=== PATIENT | female | born 1990 | race Caucasian/White ===

== ENCOUNTER 2016-04-11 13:38 | Emergency (ER) | payer OTHER ==
[~2016-04-11] VITALS: Ht 172.7 cm; Wt 82.0 kg
[2016-04-11 13:40] VITALS: Ht 172.7 cm; Wt 82.0 kg
--- NOTE | 2016-04-11 14:31 | DIAGNOSTIC IMAGING REPORT ---
RIGHT KNEE 3 VIEWS CLINICAL HISTORY: Right knee pain following fall. COMPARISON: None FINDINGS: Alignment of the right knee is anatomic. No acute fractures identified. There is a possible small right knee joint effusion. IMPRESSION: 1. No acute fracture. 2. Possible small right knee joint effusion. Electronically signed by: Bhanu Vicente M.D. 04/11/2016 2:29 PM Dictated Date/Time: 04/11/2016 2:28 PM
[2016-04-11 15:14] VITALS: BP 132/88; PULSE 99; TEMP 36.9; O2SAT 98
--- NOTE | 2016-04-11 18:03 | EMERGENCY ROOM VISIT NOTE ---
ED Visit Note First contact with patient: 13:46 CHIEF COMPLAINT: Right Knee injury HISTORY OF PRESENT ILLNESS: This 25-year-old white female patient injured the right knee within the last hour when she fell onto her right knee while ice skating. She is unsure if there was a snap or pop. She has had difficulty bearing weight. Treatment has consisted of ice. A female friend accompanies her today. No prior history of significant knee injury. Her knee pain is primarily anterior. No numbness or tingling. REVIEW OF SYSTEM: HEENT: No dizziness, visual problems, hearing loss, or tinnitus. There is no difficulty swallowing and no oral lesions are present. PULMONARY: No cough, shortness of breath, sputum production or hemoptysis. CARDIOVASCULAR: No chest pain, palpitations, shortness of breath or peripheral edema. GASTROINTESTINAL: No diarrhea, constipation, nausea, vomiting, or abdominal pain. GENITOURINARY: No dysuria, frequency, urgency or nocturia. NEUROLOGIC: No weakness, muscle tenderness, epilepsy or history of neurological problems. MUSCULOSKELETAL: No history of joint tenderness/swelling. No history of arthritis or arthralgias. SKIN: No rashes or lesions. PSYCHIATRIC: No history of depression or mental illness. ENDOCRINE: No history of diabetes, thyroid disorders, or abnormal hair growth. PMH: The patient is healthy; there is no significant medical or surgical history. 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 No tobacco use. PHYSICAL EXAM: Vital Signs: Reviewed Nurse's notes. Afebrile. MENTAL STATUS: Alert, oriented, and cooperative. General: Well-developed, well-nourished, young white female, in obvious discomfort. No acute distress. Laying on a bed. Skin:Warm and dry with good turgor. No rashes or lesions. No ecchymosis or erythema. Mild intra-articular effusion in the right knee. The patient is not diaphoretic. Small present over the right patella. Musculoskeletal: The right knee is tender to palpation around the patella. The range of motion is limited secondary to pain. She has full terminal extension. Flexion to around 60 area There is no ligamentous instability. No pain with palpation over the medial or lateral joint lines. No pain in the posterior aspect. No defect in the patellar tendon or quadriceps tendon. She does have discomfort with palpation over the patellar tendon and quadriceps tendon. She is able to set her quad and do a straight leg raise. There is discomfort with palpation over the medial and lateral retinaculum. Neurologic: Gross sensation is intact across the right leg by soft touch. Peripheral pulses are 2+. EMERGENCY DEPARTMENT COURSE: X-ray does not show any fractures or loose bodies. Films were read by radiology. DIAGNOSIS: Right Knee contusion DISCHARGE INSTRUCTIONS: Patient was educated regarding today's findings. Conservative care measures were discussed. She was placed in an Miki wrap for compression and support. Crutches were given and crutch instruction was reviewed. Weight-bear as tolerated. Gentle motion daily. Start ibuprofen, 600 mg every 6 hours if needed for pain. Supplement with Tylenol every 6 hours as needed. Ice and elevation to the knee for the next 72 hours. Follow-up with her orthopedist if symptoms are not improving over the next 4-[address] she is able to walk without a limp. Current/Historical Medications No Active Prescriptions or Reported Meds Allergies Coded Allergies: No Known Allergies (Unverified , 04/11/16) Vital Signs Date Time Temp Pulse Resp B/P Pulse Ox O2 Delivery O2 Flow Rate FiO2 04/11/16 15:14 36.9 99 18 132/88 98 04/11/16 15:13 99 18 132/88 98 Room Air 04/11/16 13:40 36.9 104 18 147/90 97 Room Air Departure Information Impression Primary Impression: Contusion of right knee Dispostion Home / Self-Care Condition GOOD Prescriptions No Active Prescriptions or Reported Meds Referrals Saji Augustin MD Forms HOME CARE DOCUMENTATION FORM, MOTRIN USE, TYLENOL USE, IMPORTANT VISIT INFORMATION Patient Instructions My [facility] [employer] Additional Instructions Ice and elevate frequently to reduce pain and swelling Use the Miki wrap to control swelling Use crutches until you can walk without a [id number] as tolerated Tylenol and Motrin every 6 hours as needed for discomfort Follow-up with [facility] or your orthopedist if symptoms are not improving by Wednesday
== END 2016-04-11 15:16 | disposition home or self-care (01) ==
LOC: C.EDB 13:40 → C.EDD 15:16
DX: S80.01XA Contusion of right knee, initial encounter (principal); W19.XXXA Unspecified fall, initial encounter; Y93.21 Activity, ice skating

== ENCOUNTER 2023-12-28 15:42 | Inpatient (IN) ==
[2023-12-28] MEDS ORDERED: CALCIUM CARBONATE 500 MG CHEWABLE TAB PO PRN (16:52)
[2023-12-28] MEDS ORDERED: LIDOCAINE 1% LOCAL 20 ML VIAL INFIL PRN (16:52)
[2023-12-28] MEDS ORDERED: OXYTOCIN 30 UNITS/NSS 30 UNITS/500 ML BAG IV PRN (16:52)
[2023-12-28] MEDS ORDERED: ACETAMINOPHEN 325 MG TAB PO PRN (16:52)
[2023-12-28 17:21] LABS: Hematocrit (blood only) 40.9 % (37.0-47.0); Hemoglobin 14.5 g/dl (12.0-16.0); Mean Corpuscular Hemoglobin 33.8 pg (25.0-34.0); Mean Corpuscular Hgb Conc 35.5 g/dL (32.0-36.0); Mean Corpuscular Volume 95.3 fL (80.0-100.0); Mean Platelet Volume 10.5 fL (9.4-12.4); Platelet Count 262 K/uL (130-400); RDW Coefficient of Variation 13.7 % (11.5-14.5); RDW Standard Deviation 47.8 fL (36.4-46.3); Red Blood Count 4.29 M/uL (4.20-5.40)
--- NOTE | 2023-12-28 17:33 | History & Physical Report ---
Date of Service December 28, 2023 Assessment & Plan (1) Gestational diabetes mellitus (GDM) affecting , antepartum: Plan: IUP at 40 6/7 weeks for IOL because of post term . cervical balloon would not stay in place so will start with po cytotec instead as FHT is reactive. switch to pitocin per induction protocol if not in labor or contractions are too frequent to continue with cytotec. epidural analgesia when requested check FBS on admission anticipate vaginal History of Present Illness Primary Care Provider: NO [facility]CP [facility] who presents for IOL at 40 6/7 weeks. During NST at the office she was noted to have occasional short variables and she was sent to L&D for further evaluation. has been complicated by diet controlled GDM. testing has been reassuring. GBS-negative Allergies Allergy/AdvReac Type Severity Reaction Status Date / Time No Known Drug Allergies Allergy Verified 12/28/23 13:04 seasonal Allergy Mild Sneezing Uncoded 12/28/23 13:04 Home Medications Medication Instructions Recorded Confirmed Type 21-iron fu-folic acid 1 tab PO DAILY 04/30/23 12/28/23 History [ Complete] acetone (urine) test (Ketone Urine #50 ea 11/04/23 12/28/23 Rx Test strips) blood sugar diagnostic (OneTouch #150 ea 11/04/23 12/28/23 Rx Verio test strips) blood-glucose meter (OneTouch #1 ea 11/04/23 12/28/23 Rx Verio Reflect Meter) blood-glucose sensor (Dexcom G7 #3 ea 11/04/23 12/28/23 Rx Sensor device) lancets 33 gauge (OneTouch Delica #150 ea 11/04/23 12/28/23 Rx Plus Lancet) Patient History Medical History Hypercholesteremia Seasonal allergies History of chicken pox Surgical History S/P wisdom tooth extraction Family History Grandmother (Paternal) Breast cancer Grandfather (Paternal) Myocardial infarction Mother Hyponatremia Denies family history of Ovarian cancer Prostate cancer Colorectal cancer Social History (Updated 04/30/23 @ 09:54 by Donna Hook) Smoking Status: Never smoker Second Hand Exposure: No; Do You Dip or Chew Tobacco: No; Hx Alcohol Use: No Hx Substance Use: No Preferred Language: Persian Communication Ability: Effective Hearing Ability: Normal Corrosion Control Specialist Required: No Beliefs That Will Affect Care: None marital status: marital status details: Yolie Delatorre (37) [phone] Current Living Situation: Spouse Current Living Situation Comment: lives with spouse, cat- changing litter current occupational status: employed 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 Other Information That Helps Us Care for You: No Feels Safe at Home: Yes Safety Concerns: Feels Safe At This Time Assistive Devices: None Review of Systems All systems reviewed & are unremarkable except as noted in HPI & below Physical Exam Constitutional: WD/WN, vitals as above Psychiatric: A+Ox3, euthymic affect Genitourinary: OB Exam Abdomen: + vertex and + estimated weight (7-8 pounds); no irregular contractions Manual OB Exam: + cervical dilation fingertip, + cervical effacement 60% (soft) and + station -2 OB Exam Monitor Tracing: + external FHT monitor used, + external uterine monitor used, + category I, + normal FHT variability and + variable decelerations isolated (mild/ rare) cervical balloon attempted twice- both times in the cervix and was expelled immediately cervix now 1-2cm/70/-2 Results & Data Vital Signs (Past 12 Hours) Vital Signs Temp Pulse Resp BP 12/28/23 15:58 18 12/28/23 15:58 97.5 F L 18 12/28/23 15:57 99 H 109/70 Code Status & VTE Plan VTE Prophylaxis Plan VTE Prophylaxis will be ordered: No Coding Level of Care Code 90823 INT INP/OBS CARE 1/40MIN Diagnoses Gestational diabetes mellitus (GDM) affecting , antepartum O24.419
[2023-12-28] MEDS ORDERED: miSOPROStoL 25 MCG TAB PV SCH (19:30)
[2023-12-28] MEDS ORDERED: BUTORPHANOL TARTRATE 2 MG/ML VIAL IV PRN (19:51)
[2023-12-28] MEDS: miSOPROStoL 50 MCG TAB PO SCH (20:08)
[2023-12-29] MEDS: LACTATED RINGER'S 1,000 ML IV SCH (06:25)
[2023-12-29] MEDS: OXYTOCIN 30 UNITS/NSS 30 UNITS/500 ML BAG IV PRN (06:30)
[2023-12-29] MEDS ORDERED: LIDOCAINE 2% MPF LOCAL 5 ML VIAL EPI PRN (08:55)
[2023-12-29] MEDS ORDERED: NALOXONE HCL 0.4 MG/1 ML VIAL/CARP IV PRN (08:55)
[2023-12-29] MEDS ORDERED: diphenhydrAMINE 50 MG/ML VIAL IV PRN (08:55)
[2023-12-29] MEDS ORDERED: NALBUPHINE HCL INJ 10 MG/ML AMP IV PRN (08:55)
[2023-12-29] MEDS ORDERED: ONDANSETRON INJ 2 MG/ML 2 ML VIAL IV PRN (08:55)
[2023-12-29] MEDS ORDERED: ePHEDrine sulfate 50 MG/ML AMP IV PRN (08:55)
[2023-12-29] MEDS ORDERED: SODIUM CHLORIDE 0.9% PF INJ 10 ML VIAL EPI PRN (08:55)
[2023-12-29] MEDS ORDERED: ROPIVACAINE 0.5% PF 5 MG/ML 20 ML VIAL EPI PRN (08:55)
[2023-12-29] MEDS ORDERED: fentaNYL citrate PF 100 MCG/2 ML VIAL EPI PRN (08:55)
[2023-12-29] MEDS ORDERED: BUPIVACAINE 0.25% PF 30 ML VIAL EPI PRN (08:55)
[2023-12-29] MEDS ORDERED: NALOXONE HCL 1 MG in SODIUM CHLORIDE 0.9% 1,000 ML IV PRN (08:55)
--- NOTE | 2023-12-29 08:57 | Anesthesiology Consultation ---
Date of Service December 29, 2023 Assessment & Plan (1) Encounter for pre-operative examination: Chart Review Chart Review: Patient NOT seen in Pre Admission Testing and Acceptable Risk for Labor Epidural Consults Requested none History Height/Weight Height: 5 ft 8 in Weight: 98.883 kg Allergies Allergy/AdvReac Type Severity Reaction Status Date / Time No Known Drug Allergies Allergy Verified 12/28/23 13:04 seasonal Allergy Mild Sneezing Uncoded 12/28/23 13:04 Medications Home Medications Medication Instructions Recorded Confirmed Last Taken 21-iron fu-folic acid 1 tab PO DAILY 04/30/23 12/28/23 12/28/23 12:00 [ Complete] acetone (urine) test (Ketone Urine #50 ea 11/04/23 12/28/23 Unknown Test strips) blood sugar diagnostic (OneTouch #150 ea 11/04/23 12/28/23 Unknown Verio test strips) blood-glucose meter (OneTouch #1 ea 11/04/23 12/28/23 Unknown Verio Reflect Meter) blood-glucose sensor (Dexcom G7 #3 ea 11/04/23 12/28/23 Unknown Sensor device) lancets 33 gauge (OneTouch Delica #150 ea 11/04/23 12/28/23 Unknown Plus Lancet) Active Medications Generic Name Dose Route Start Last Admin Trade Name Freq PRN Reason Stop Dose Admin Oxytocin 30 units in 500 mls @ 1 mls/hr 12/28/23 16:54 12/29/23 06:30 Pitocin 30 Units/Nss IV 12/30/23 16:53 0.06 units/hr .Q24H PRN 1 mls/hr Labor Induction/Augmentation Administration Protocol 0.06 UNITS/HR Lactated Ringer's 1,000 mls @ 125 mls/hr 12/29/23 06:00 12/29/23 06:25 Lr IV 12/30/23 05:59 50 mls/hr .Q8H VERO Administration Misoprostol 50 mcg 12/28/23 20:00 12/29/23 06:01 Misoprostol 50 Mcg Tab PO 01/27/24 19:59 Not Given Q4H VERO Past Medical History Medical History (Updated 12/29/23 @ 08:57 by Joaquín Andrew MD) Encounter for pre-operative examination Gestational diabetes mellitus (GDM) affecting , antepartum Hypercholesteremia Seasonal allergies History of chicken pox Exercise / Class Metabolic Activity II 4-5 Yardwork/Stairs/Walk up hill Past Family History Family History Grandmother (Paternal) Breast cancer Grandfather (Paternal) Myocardial infarction Mother Hyponatremia Denies family history of Ovarian cancer Prostate cancer Colorectal cancer Past Surgical History Surgical History S/P wisdom tooth extraction Past Anesthesia History No Hx of Anesthesia Complications and No Family Hx of Anesthesia Complications Social History Smoking Status: Never smoker Do You Dip or Chew Tobacco: No Hx Alcohol Use: No Alcohol type: wine Hx Substance Use: No Physical Exam Vital Signs Last Vital Signs Temp 36.7 C 12/29/23 07:05 Pulse 89 12/29/23 08:13 Resp 16 12/29/23 07:05 BP 104/66 12/29/23 08:13 Testing Laboratory Results 12/28/23 17:05
[2023-12-29] MEDS: BUPIVACAINE 0.25% PF 30 ML VIAL ONE (09:15)
[2023-12-29] MEDS: fentANYL 2 MCG/ML BUPIVacaine 0.125%-NSS 100ML BAG ONE (09:16)
[2023-12-29] MEDS: LIDOCAINE 2%/EPINEPHRINE 1:200,000 20 ML PF ONE (09:24)
[2023-12-29] MEDS: fentaNYL citrate PF 100 MCG/2 ML VIAL ONE (09:32)
[2023-12-29] MEDS: SODIUM CHLORIDE 0.9% PF INJ 10 ML VIAL ONE (09:53)
[2023-12-29] MEDS: BUPIVACAINE 0.25% PF 30 ML VIAL EPI STA (10:28)
[2023-12-29] MEDS: fentaNYL citrate PF 100 MCG/2 ML VIAL EPI STA (10:28)
[2023-12-29] MEDS: LIDOCAINE 2%/EPINEPHRINE 1:200,000 20 ML PF EPI STA (10:28)
[2023-12-29] MEDS: SODIUM CHLORIDE 0.9% PF INJ 10 ML VIAL EPI STA (10:28)
[2023-12-29] MEDS: ePHEDrine sulfate 50 MG/ML AMP ONE (11:15)
--- NOTE | 2023-12-29 14:04 | Communication Note ---
Date of Service: December 29, 2023 Note the patient was started induction yesterday by the previous provider cervical Aldana was attempted but it would not stay and Pitocin was started after initial Cytotec. I attempted to check the patient cervix but it is fairly thick I think she is 1-2 at most at this stage I cannot rupture membranes easily at this stage would prefer her to be a little further along she has had some repeated late decelerations as well but variability is excellent and she has accelerations the decelerations have responded to position changes I do lengthy discussion with the patient about our plan of action we will readjust her position continued induced with Pitocin if the decelerations become more persistent or more worrisome we will have to reassess we did discuss the possibility of a
[2023-12-29] MEDS: fentANYL 2 MCG/ML BUPIVacaine 0.125%-NSS 100ML BAG EPI PRN (18:20)
--- NOTE | 2023-12-30 00:29 | Delivery Summary ---
Vaginal Delivery Summary Date of Service December 30, 2023 Vaginal Delivery Summary and 2nd Degree LAC Patient induced normal spontaneous vaginal delivery she required oxytocin initially a cervical Aldana been attempted but it would not stay she requested epidural and then had a spontaneous rupture of membranes progress was slow initially however it then rapidly progressed to fully dilated she then pushed over several contractions delivering a baby in occiput anterior position after the head was delivered gentle traction on the baby no excessive force combined with maternal expulsive efforts I was able to release the shoulder from the symphysis pubis and then further traction easy delivery live vigorous female cord clamped and cut cord blood obtained placenta removed with traction IV Pitocin started uterine tone improved second-degree tear repaired in the usual fashion with 3-0 Vicryl sponge and instrument counts correct QBL 65 mL MNPG Vaginal Delivery Charge Delivery Type Details: and 2nd Degree LAC
[2023-12-30] MEDS ORDERED: oxyCODONE/ACETAMINOPHEN 5mg/325mg TAB PO PRN (01:44)
[2023-12-30] MEDS ORDERED: OXYTOCIN 30 UNITS/NSS 30 UNITS/500 ML BAG IV PRN (01:44)
[2023-12-30] MEDS ORDERED: HYDROCORTISONE ACETATE 25 MG SUPP PR PRN (01:44)
[2023-12-30] MEDS: IBUPROFEN 600 MG TAB PO PRN (01:57)
[2023-12-30] MEDS: BENZOCAINE 20% SPRY 85 APPLN/85 GM CAN EXT PRN (01:58)
[2023-12-30] MEDS: DIPHTHER/TETAN/PERTUS Vaccine (Tdap, Adol/Adult) 0.5mL IM ONE (02:06)
--- NOTE | 2023-12-30 07:53 | Obstetrical Progress Note ---
Date of Service December 30, 2023 Assessment & Plan (1) Supervision of normal first : day #0 she is doing well no extremity pain continue current care Subjective Ambulation: ambulating normally Voiding: no voiding problems Passing Gas:: Yes Diet Tolerance:: regular diet Lochia:: Small Physical Exam Constitutional WD/WN, vitals as above well developed and well nourished Respiratory normal respiratory effort, lungs clear to auscultation normal respiratory effort Cardiovascular RRR, no murmur, no edema Gastrointestinal (Abdomen) normal bowel sounds, soft, nontender, no hepatosplenomegaly Results & Data Vital Signs (Past 12 Hours) Vital Signs Temp Pulse Pulse Resp BP BP Pulse Ox 12/30/23 02:56 97.5 F L 85 18 112/72 97 12/30/23 02:28 102 H 111/68 12/30/23 01:53 91 H 120/73 12/30/23 01:28 90 114/67 12/30/23 01:07 104 H 114/78 12/30/23 00:52 101 H 111/73 12/30/23 00:46 89 110/68 12/30/23 00:36 96 H 124/70 12/30/23 00:30 101 H 95 12/30/23 00:25 103 H 94 12/30/23 00:24 95 H 12/30/23 00:24 94 H 139/81 94 12/30/23 00:20 94 H 98 12/30/23 00:15 89 96 12/30/23 00:10 99 12/30/23 00:10 71 12/30/23 00:10 69 129/70 12/30/23 00:09 96 H 87 L 12/30/23 00:05 83 100 12/30/23 00:00 79 100 12/29/23 23:55 79 117/74 100 12/29/23 23:50 73 100 12/29/23 23:45 98.1 F 18 12/29/23 23:45 82 99 12/29/23 23:40 98 12/29/23 23:40 72 12/29/23 23:40 71 112/60 12/29/23 23:35 77 99 12/29/23 23:30 77 98 12/29/23 23:25 74 109/63 99 12/29/23 23:20 77 99 12/29/23 23:15 75 98 12/29/23 23:11 71 109/62 12/29/23 23:10 78 99 12/29/23 23:05 80 99 12/29/23 23:00 83 99 12/29/23 22:55 80 98 12/29/23 22:54 75 111/78 12/29/23 22:50 82 96 12/29/23 22:45 79 96 12/29/23 22:40 78 98 12/29/23 22:39 79 110/68 12/29/23 22:35 80 98 12/29/23 22:30 79 98 12/29/23 22:25 78 115/67 97 12/29/23 22:20 78 98 12/29/23 22:15 78 98 12/29/23 22:10 81 98 12/29/23 22:09 75 109/69 12/29/23 22:05 77 97 12/29/23 22:00 76 97 12/29/23 21:55 87 97 12/29/23 21:54 90 113/73 12/29/23 21:50 78 98 12/29/23 21:45 79 98 12/29/23 21:40 79 97 12/29/23 21:39 73 111/65 12/29/23 21:35 82 98 12/29/23 21:30 84 97 12/29/23 21:25 78 96 12/29/23 21:24 81 105/57 L 12/29/23 21:20 73 96 12/29/23 21:15 77 98 12/29/23 21:14 18 12/29/23 21:14 98.6 F 18 12/29/23 21:10 98 12/29/23 21:10 76 12/29/23 21:10 71 106/57 L 12/29/23 21:05 79 96 12/29/23 21:00 75 96 12/29/23 20:55 77 97 12/29/23 20:54 80 106/66 12/29/23 20:50 81 97 12/29/23 20:45 80 97 12/29/23 20:40 79 104/62 97 12/29/23 20:35 76 97 12/29/23 20:30 72 98 12/29/23 20:25 74 96 12/29/23 20:24 71 103/62 12/29/23 20:20 75 97 12/29/23 20:15 81 97 12/29/23 20:10 71 107/65 97 12/29/23 20:05 75 97 12/29/23 20:00 72 98 12/29/23 19:55 79 109/64 98 O2 Del Method 12/30/23 02:56 Room Air 12/30/23 02:28 12/30/23 01:53 12/30/23 01:28 12/30/23 01:07 12/30/23 00:52 12/30/23 00:46 12/30/23 00:36 12/30/23 00:30 12/30/23 00:25 12/30/23 00:24 12/30/23 00:24 12/30/23 00:20 12/30/23 00:15 12/30/23 00:10 12/30/23 00:10 12/30/23 00:10 12/30/23 00:09 12/30/23 00:05 12/30/23 00:00 12/29/23 23:55 12/29/23 23:50 12/29/23 23:45 12/29/23 23:45 12/29/23 23:40 12/29/23 23:40 12/29/23 23:40 12/29/23 23:35 12/29/23 23:30 12/29/23 23:25 12/29/23 23:20 12/29/23 23:15 12/29/23 23:11 12/29/23 23:10 12/29/23 23:05 12/29/23 23:00 12/29/23 22:55 12/29/23 22:54 12/29/23 22:50 12/29/23 22:45 12/29/23 22:40 12/29/23 22:39 12/29/23 22:35 12/29/23 22:30 12/29/23 22:25 12/29/23 22:20 12/29/23 22:15 12/29/23 22:10 12/29/23 22:09 12/29/23 22:05 12/29/23 22:00 12/29/23 21:55 12/29/23 21:54 12/29/23 21:50 12/29/23 21:45 12/29/23 21:40 12/29/23 21:39 12/29/23 21:35 12/29/23 21:30 12/29/23 21:25 12/29/23 21:24 12/29/23 21:20 12/29/23 21:15 12/29/23 21:14 12/29/23 21:14 12/29/23 21:10 12/29/23 21:10 12/29/23 21:10 12/29/23 21:05 12/29/23 21:00 12/29/23 20:55 12/29/23 20:54 12/29/23 20:50 12/29/23 20:45 12/29/23 20:40 12/29/23 20:35 12/29/23 20:30 12/29/23 20:25 12/29/23 20:24 12/29/23 20:20 12/29/23 20:15 12/29/23 20:10 12/29/23 20:05 12/29/23 20:00 12/29/23 19:55
[2023-12-30] MEDS: PRENATAL VITAMIN 1 TAB PO SCH (08:11)
[2023-12-30] MEDS: DOCUSATE SODIUM 100 MG CAP PO SCH (08:11)
--- NOTE | 2023-12-30 08:37 | Anesthesia Procedure Note ---
Date of Service December 30, 2023 Anesthesia Post Epidural Note Vital Signs Vital Signs: Temp Pulse Resp BP Pulse Ox O2 Del Method 36.4 C L 85 18 112/72 97 Room Air 12/30/23 02:56 12/30/23 02:56 12/30/23 02:56 12/30/23 02:56 12/30/23 02:56 12/30/23 02:56 Pain Intensity Left Lower Hip: Pain Intensity: 7 Bilateral Lower Abdomen: Pain Intensity: 7 Notes Mental Status: alert / awake / arousable Nausea / Vomiting: adequately controlled Pain: adequately controlled Airway Patency, RR, SpO2: stable & adequate BP & HR: stable & adequate Hydration State: stable & adequate Neuraxial Anesthesia: was administered and sensory block is resolving Anesthetic Complications: no major complications apparent Epidural: Removed without complications and With tip intact
[2023-12-30 19:01] VITALS: RESP 16
[2023-12-30] MEDS: ACETAMINOPHEN 325 MG TAB PO PRN (21:54)
[2023-12-30 22:39] VITALS: TEMP 97.9
[2023-12-31 06:33] LABS: Hematocrit (blood only) 36.5 % (37.0-47.0); Hemoglobin 12.5 g/dl (12.0-16.0); Mean Corpuscular Hemoglobin 33.5 pg (25.0-34.0); Mean Corpuscular Hgb Conc 34.2 g/dL (32.0-36.0); Mean Corpuscular Volume 97.9 fL (80.0-100.0); Mean Platelet Volume 10.6 fL (9.4-12.4); Platelet Count 220 K/uL (130-400); RDW Coefficient of Variation 13.8 % (11.5-14.5); RDW Standard Deviation 50.4 fL (36.4-46.3); Red Blood Count 3.73 M/uL (4.20-5.40); White Blood Count 10.52 K/ul (4.8-10.8)
--- NOTE | 2023-12-31 07:42 | Obstetrical Progress Note ---
Date of Service December 31, 2023 Assessment & Plan (1) Encounter for care and examination after delivery: Day 1 status post vaginal delivery. Patient doing well. Routine care but is stable for discharge if preferred Subjective Ambulation: ambulating normally Voiding: no voiding problems Passing Gas:: Yes Diet Tolerance:: regular diet Lochia:: Moderate Feeding Type:: breast feeding Physical Exam Breast-feeding at time of exam and therefore exam was very limited. She is denying any concerns Results & Data Vital Signs (Past 12 Hours) Vital Signs Temp Pulse Resp BP Pulse Ox O2 Del Method 12/30/23 22:38 36.6 C 82 16 118/79 96 Room Air
[2023-12-31 14:48] VITALS: BP 128/81; PULSE 91; O2SAT 96
[2023-12-31] MEDS ORDERED: bisacodyL 5 MG TABEC PO SCH (20:00)
[2024-01-01] MEDS ORDERED: bisacodyL 10 MG SUPP PR PRN (01:44)
== END 2023-12-31 16:30 | disposition home or self-care (01) | DRG 807 ==
LOC: OPB 15:42 → 4S1 15:46 → 4E2 12-30 03:46
DX: Z37.0 Single live birth; O48.0 Post-term pregnancy; O24.420 Gestational diabetes mellitus in childbirth, diet controlled; O70.1 Second degree perineal laceration during delivery; Z3A.40 40 weeks gestation of pregnancy